=== PATIENT | male | born 1990 | race American Indian/Alaskan Native ===

== ENCOUNTER 2018-09-28 10:27 | Emergency (ER) | payer SELFPAY ==
[2018-09-28] MEDS ORDERED: BOOSTRIX IM ONE (10:35)
[2018-09-28 10:38] VITALS: BP 119/62
--- NOTE | 2018-09-28 10:40 | Emergency Department Report ---
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 Since that time. Abdomen dose throbbing pain with occasional lancinating shooting type pains up the finger. Reports no pus, discharge or oral bleeding. It current. No fever, chills, sweats. No arm, elbow or axillary pain. No swelling to the finger has been keeping it clean with soap soap and water and a finger dressing was at work complaining of pain, so they're advised to come to the emergency room for evaluation. Consistency: constant Worsens with: movement Associated Symptoms: denies: confusion, chest pain, cough, diaphoresis, loss of appetite, nausea/vomiting, shortness of breath Treatments Prior to Arrival: none - Related Data Previous Rx's Medication Instructions Recorded Last Taken Type Ketorolac [Toradol] 10 mg PO Q6H PRN #15 tablet 09/28/18 Unknown Rx cephALEXin [Keflex] 500 mg PO Q6HR #40 capsule 09/28/18 Unknown Rx Allergies Allergy/AdvReac Type Severity Reaction Status Date / Time No Known Allergies Allergy Unverified 09/28/18 10:28 ED Review of Systems ROS: Stated complaint: CUT ON L FINGER Other details as noted in HPI Constitutional: denies: chills, fever Eyes: denies: eye pain, eye discharge, vision change ENT: denies: ear pain, throat pain Respiratory: denies: cough, shortness of breath, wheezing Cardiovascular: denies: chest pain, palpitations Endocrine: no symptoms reported Gastrointestinal: denies: abdominal pain, nausea, diarrhea Genitourinary: denies: urgency, dysuria Musculoskeletal: denies: back pain, joint swelling, arthralgia Skin: denies: rash, lesions Neurological: denies: headache, weakness, paresthesias Psychiatric: denies: anxiety, depression Hematological/Lymphatic: denies: easy bleeding, easy bruising ED Past Medical Hx - Past Medical History Previous Medical History?: No - Surgical History Past Surgical History?: No - Medications Home Medications: Home Medications Medication Instructions Recorded Confirmed Last Taken Type Ketorolac [Toradol] 10 mg PO Q6H PRN #15 tablet 09/28/18 Unknown Rx cephALEXin [Keflex] 500 mg PO Q6HR #40 capsule 09/28/18 Unknown Rx ED Physical Exam - General Limitations: No Limitations General appearance: alert, in no apparent distress - Head Head exam: Present: atraumatic, normocephalic - Eye Eye exam: Present: normal appearance, PERRL, EOMI Pupils: Present: normal accommodation - ENT ENT exam: Present: normal exam, normal orophraynx, mucous membranes moist - Neck Neck exam: Present: normal inspection, full ROM - Respiratory Respiratory exam: Present: normal lung sounds bilaterally. Absent: respiratory distress - Cardiovascular Cardiovascular Exam: Present: regular rate, normal rhythm. Absent: systolic murmur, diastolic murmur, rubs, gallop - GI/Abdominal GI/Abdominal exam: Present: soft, normal bowel sounds. Absent: distended, tenderness, guarding, hyperactive bowel sounds, hypoactive bowel sounds - Rectal Rectal exam: Present: deferred - Extremities Exam Extremities exam: Present: normal inspection - Expanded Upper Extremity Exam Right Shoulder Exam: Present: normal inspection Upper Arm exam: Present: normal inspection Elbow exam: Present: normal inspection Hand Wrist exam: Present: tenderness (right fourth digit puncture wound at the distal tip. Pulses 2+ Clue refills brisk. Full range of motion. Flexion and extension. No deformity. Sensation intact with light touch.) - Back Exam Back exam: Present: normal inspection - Neurological Exam Neurological exam: Present: alert, oriented X3 - Psychiatric Psychiatric exam: Present: normal affect, normal mood - Skin Skin exam: Present: warm, dry, intact, normal color. Absent: rash ED Medical Decision Making - Medical Decision Making This injury occurred about 24 hours ago. There is a puncture in nature discussed with him about the appropriate management for for this wound and need for follow-up in 2-3 days to ensure that no and infection is present. Currently there is no cellulitis or lymphangitis present. No active bleeding or discharge from the wound. I discussed with him the need to complete the entire therapy and took and how to clean the wound with an entire microbial wash. Critical care attestation.: If time is entered above; I have spent that time in minutes in the direct care of this critically ill patient, excluding procedure time. ED Disposition Clinical Impression: Puncture wound of finger, Tetanus toxoid vaccination administered at current visit Disposition: [id number] TO HOME OR SELFCARE Is pt being admited?: No Does the pt Need Aspirin: No Condition: Stable Instructions: Puncture Wound (ED) Prescriptions: cephALEXin [Keflex] 500 mg PO Q6HR #40 capsule Ketorolac [Toradol] 10 mg PO Q6H PRN #15 tablet PRN Reason: Pain Referrals: [facility] [Provider Group] - 2-3 Days (Referral for recheck in 2- 3 days)
== END 2018-09-28 11:01 | disposition home or self-care (01) ==
LOC: ED 10:27
DX: S61.230A Puncture wound without foreign body of right index finger without damage to nail, initial encounter (principal); W22.8XXA Striking against or struck by other objects, initial encounter; Y93.89 Activity, other specified; Y92.69 Other specified industrial and construction area as the place of occurrence of the external cause; Y99.0 Civilian activity done for income or pay
CPT/HCPCS: 90471; 90715; 99282